=== PATIENT | female | born 1940 | race Caucasian/White ===

== ENCOUNTER 2016-08-19 12:50 | Emergency (ER) | payer BC, MEDICARE ==
[~2016-08-19 12:50] MED LIST: Amoxicillin 500 MG Cap PO ONE
[2016-08-19] MEDS ORDERED: cefTRIAXone 1 GM Vial IM ONE (12:58)
[2016-08-19] MEDS ORDERED: Dexamethasone/Tobramycin 0.1-0.3% Ophth Susp 2.5 ML Bottle EYELF SCH (13:00)
[2016-08-19 13:04] VITALS: BP 140/80
[2016-08-19] MEDS ORDERED: Lidocaine 1% 20 ML MDV ONE (13:08)
[2016-08-19] MEDS ORDERED: Acyclovir 200 MG Cap PO ONE (13:26)
[2016-08-19] MEDS ORDERED: Amoxicillin 500 MG Cap ONE (13:29)
[2016-08-19] MEDS ORDERED: Take Home: Amoxicillin 500 MG Cap, 2 Cap Pack PO ONE (13:31)
--- NOTE | 2016-08-19 13:37 | EDM.PDOC ---
ED HPI GENERAL MEDICAL PROBLEM - General Chief Complaint: ENT Problem Stated Complaint: eye redness Time Seen by Provider: 08/19/16 13:31 Source of Information: Reports: Patient History Limitations: Reports: No Limitations - History of Present Illness INITIAL COMMENTS - FREE TEXT/NARRATIVE: presents to Er with red swollen left eye, very painful, with blistering noted on lower eye lid. Onset Date: 08/18/16 Duration: Day(s): Location: Reports: Face Quality: Reports: Burning Severity: Moderate Improves with: Reports: None Worsens with: Reports: None - Related Data Allergies Allergy/AdvReac Type Severity Reaction Status Date / Time No Known Allergies Allergy Verified 08/19/16 12:51 Home Meds: Home Meds Aspirin [Halfprin] 81 mg PO DAILY 08/19/16 [History] Calcium Carbonate/Vitamin D3 [Caltrate 600 + D Soft Chew Tab] 1 tab PO DAILY [History] Fluticasone Propionate [Flovent] 2 sprays NASBOTH DAILY 08/19/16 [History] Levothyroxine [Synthroid] 88 mcg PO DAILY 08/19/16 [History] Losartan/Hydrochlorothiazide [Losartan-HCTZ 100-25 MG] 1 tab PO DAILY 08/19/16 [ History] Multivits-Min/Iron/FA/Lutein [Centrum Silver Women Tablet] 1 tab PO DAILY [History] Vitamin B Complex [B Complex] 1 tab PO DAILY 08/19/16 [History] Zolpidem Tartrate 5 mg PO BEDTIME PRN 08/19/16 [History] amLODIPine Besylate [Norvasc] 2.5 mg PO DAILY 08/19/16 [History] ED ROS ENT - Review of Systems Review Of Systems: See Below Constitutional: Reports: No Symptoms HEENT: Reports: Eye Discharge Respiratory: Reports: No Symptoms Cardiovascular: Reports: No Symptoms Endocrine: Reports: No Symptoms GI/Abdominal: Reports: No Symptoms : Reports: No Symptoms Musculoskeletal: Reports: No Symptoms Skin: Reports: Lesions Neurological: Reports: No Symptoms Psychiatric: Reports: No Symptoms Hematologic/Lymphatic: Reports: No Symptoms Immunologic: Reports: No Symptoms ED EXAM, ENT - Physical Exam Exam: See Below Exam Limited By: No Limitations General Appearance: Alert, WD/WN Eye Exam: Left Eye: Other (Swelling noted of the left upper eyelid, with blistering and swelling noted of the lower lid) Ears: Normal External Exam, Normal Canal Nose: Normal Inspection Mouth/Throat: Normal Inspection Head: Atraumatic Neck: Normal Inspection Respiratory/Chest: No Respiratory Distress Cardiovascular: Normal Peripheral Pulses Extremities: Normal Inspection Neurological: Alert, Oriented, CN II-XII Intact Skin: Rash, Zoster-Like Rash Course - Vital Signs Last Recorded V/S: Last Vital Signs Temp 97.6 F 08/19/16 13:01 Pulse 89 08/19/16 13:01 Resp 18 08/19/16 13:01 BP 140/80 08/19/16 13:01 Pulse Ox 97 08/19/16 13:01 - Orders/Labs/Meds Orders: Active Orders 24 hr Category Date Time Status Dexamethasone/Tobramycin [Tobradex Ophth Susp] Med 08/19/16 13:00 Active 2 ml EYELF Q4H Medication Orders Tobramycin/Dexamethasone (Tobradex Ophth Susp) 2 ml EYELF Q4H MIGNON Last Admin: 08/19/16 13:23 Dose: Meds: Medications Generic Name Dose Route Start Last Admin Trade Name Freq PRN Reason Stop Dose Admin Tobramycin/Dexamethasone 2 ml 08/19/16 13:00 08/19/16 13:23 Tobradex Ophth Susp EYELF Not Given Q4H MIGNON Discontinued Medications Generic Name Dose Route Start Last Admin Trade Name Freq PRN Reason Stop Dose Admin Ceftriaxone Sodium 1 gm 08/19/16 12:58 08/19/16 13:19 Rocephin IM 08/19/16 12:59 1 gm ONETIME ONE Administration Lidocaine HCl Confirm 08/19/16 13:08 08/19/16 13:22 Xylocaine 1% Administered 08/19/16 13:09 Not Given Dose 20 ml .ROUTE .STK-MED ONE Departure - Departure Time of Disposition: 13:35 Disposition: Home, Self-Care 01 Condition: fair Clinical Impression: Eye infection, Shingles - Discharge Information Forms: ED Department Discharge Additional Instructions: Call Dr. Foster Zeenat to schedule follow up in his office . Take your medications as ordered. Return to Er if condition worsens. - My Orders Last 24 Hours: My Active Orders 08/19/16 13:00 Dexamethasone/Tobramycin [Tobradex Ophth Susp] 2 ml EYELF Q4H - Assessment/Plan Last 24 Hours: My Active Orders 08/19/16 13:00 Dexamethasone/Tobramycin [Tobradex Ophth Susp] 2 ml EYELF Q4H
== END 2016-08-19 13:56 | disposition home or self-care (01) ==
LOC: CC.ED 12:50
DX: B02.39 Other herpes zoster eye disease (principal); Z79.899 Other long term (current) drug therapy
CPT/HCPCS: 99282; A9270; J0696; 96372